=== PATIENT | female | born 1975 | race African-American/Black ===

== ENCOUNTER → 2017-02-04 | Outpatient (CLI) | payer MEDICARE, OTHER ==
--- NOTE | 2017-02-04 15:55 | US ---
EXAMINATION TYPE: US OB <=14 wks transvag DATE OF EXAM: 02/04/2017 COMPARISON: NONE CLINICAL HISTORY: Z33. state incidental. hx of 2 strokes. hx of 3 c-sections EXAM PERFORMED: Transvaginal (TV) and Transabdominal (TA) EXAM MEASUREMENTS: GESTATIONAL AGE / DATING Dates by LMP: (8 weeks/5 days) EDC: 09/11/2017 Dates by Current Scan: ( 9 weeks/0 days) EDC: 09/09/2017 MATERNAL ANATOMY Uterus: 10.1 x 6.3 x 5.6 cm Right Ovary: 2.7 x 1.5 x 1.5 cm Left Ovary: 2.5 x 2.0 x 1.5 cm Post CDS / Adnexa: no free fluid Presence of free fluid: no Presence of corpus luteal cyst: hypoechoic lesion in left ovary = 1.4 x 1.3 x 1.1 cm GESTATION / SURVEY CRL: 2.3 cm (9 weeks/0 days) MSD: seen Yolk Sac (normal less than 6mm): 3.9 mm Heart Rate: 195 bpm Rhythm: Normal IUP: Viable IUP Date of LMP: 12/05/2016, Beta HcG (if available): not available Live IUP measuring 9 weeks 0 days. Heart rate appears high. IMPRESSION: VIABLE UTERINE GESTATION WITH A GESTATIONAL AGE OF 9 WEEKS +/- 5 DAYS. ESTIMATED DATE OF CONFINEMENT BASED ON THIS EXAMINATION IS 09/09/2017
== END | disposition home or self-care (01) ==
LOC: RADUSWWP 14:49
PROVIDERS: ATTEND Family Medicine
DX: O99.89 Other specified diseases and conditions complicating pregnancy, childbirth and the puerperium (principal); Z86.73 Personal history of transient ischemic attack (TIA), and cerebral infarction without residual deficits; Z3A.09 9 weeks gestation of pregnancy
CPT/HCPCS: 76801; 76817

== ENCOUNTER → 2018-06-03 | Outpatient (CLI) | payer MEDICARE, OTHER ==
[2018-06-03 14:48] LABS: Basophils # (A) 0.1 k/uL (0-0.2); Basophils % (A) 1 %; Eosinophils # (A) 0.2 k/uL (0-0.7); Eosinophils % (A) 2 %; HGB 14.3 gm/dL (11.4-16.0); Lymphocytes # (A) 3.6 k/uL (1.0-4.8); Lymphocytes % (A) 27 %; MCH 29.3 pg (25.0-35.0); MCHC 33.2 g/dL (31.0-37.0); MCV 88.2 fL (80.0-100.0); Mean Platelet Volume 6.9; Monocytes # (A) 0.4 k/uL (0-1.0); Monocytes % (A) 3 %; Neutrophils # (A) 8.7 k/uL (1.3-7.7); Neutrophils % (A) 67 %; Platelet Count 265 k/uL (150-450); RBC 4.88 m/uL (3.80-5.40); RDW 13.2 % (11.5-15.5)
== END | disposition home or self-care (01) ==
LOC: LABPAT 13:25
PROVIDERS: ATTEND Surgery
DX: Z01.812 Encounter for preprocedural laboratory examination (principal); K43.2 Incisional hernia without obstruction or gangrene
CPT/HCPCS: 36415; 85025

== ENCOUNTER → 2018-06-08 | Outpatient (CLI) | payer MEDICARE, OTHER | END | disposition home or self-care (01) | LOC: LABPAT 12:57 | PROVIDERS: ATTEND Surgery | DX: Z01.818 Encounter for other preprocedural examination (principal); Z01.812 Encounter for preprocedural laboratory examination; K43.2 Incisional hernia without obstruction or gangrene | CPT/HCPCS: 93005 ==

== ENCOUNTER 2018-06-10 08:33 | Day surgery (SDC) | payer MEDICARE, OTHER ==
[~2018-06-10 08:33] MED LIST: DEXAMETHASONE SOD PHOSPHATE 10 MG/ML 1 ML VIAL IV ONE; HEPARIN SODIUM,PORCINE 5,000 UNIT/ML 1 ML VIAL SQ ONE; LACTATED RINGERS 1,000 ML IV SCH; LIDOCAINE 1% 20 ML VIAL (10MG/ML) FOR IV START INTRADERMA PRN; ONDANSETRON 4 MG/2 ML VIAL IVP ONE; SCOPOLAMINE 1.5MG/72HR PATCH TRANSDERM ONE; ceFAZolin IN SWFI 2 GM/20 ML SYRINGE IVP ONE
[2018-06-10 09:35] LABS: Glucose,Whole Blood 195 mg/dL (75-99)
[2018-06-10 09:35] LABS: Glucose,Whole Blood 150 mg/dL (75-99)
[2018-06-10] MEDS ORDERED: PROPOFOL 10 MG/ML 20 ML VIAL IV ONE (11:05)
[2018-06-10] MEDS ORDERED: NEOSTIGMINE 1 MG/ML 10 ML VIAL ONE (11:05)
[2018-06-10] MEDS ORDERED: HYDROmorphone (PF) 1 MG/ML ONE (11:05)
[2018-06-10] MEDS ORDERED: fentaNYL (PF) 50 MCG/ML 2 ML AMP ONE (11:05)
[2018-06-10] MEDS ORDERED: SUCCINYLCHOLINE CHLORIDE 100 MG/5 ML SYR IV ONE (11:05)
[2018-06-10] MEDS ORDERED: GLYCOPYRROLATE 0.2 MG/ML 2 ML VIAL ONE (11:05)
[2018-06-10] MEDS ORDERED: LABETALOL 5 MG/ML VIAL MDV ONE (11:05)
[2018-06-10] MEDS ORDERED: KETAMINE 10 MG/ML 20 ML VIAL ONE (11:05)
[2018-06-10] MEDS ORDERED: MIDAZOLAM 2 MG/2 ML VIAL ONE (11:05)
[2018-06-10] MEDS ORDERED: ROCURONIUM BROMIDE 10 MG/ML 10 ML VIAL IV ONE (11:05)
[2018-06-10] MEDS ORDERED: LIDOCAINE 1% INJ 10MG/ML (20 ML MDV) ONE (11:05)
[2018-06-10] MEDS ORDERED: LACTATED RINGERS 1,000 ML IV ONE (11:33)
[2018-06-10] MEDS ORDERED: ONDANSETRON 4 MG/2 ML VIAL IVP PRN (13:06)
[2018-06-10] MEDS ORDERED: NALOXONE 0.4 MG/ML 1 ML VIAL IV PRN (13:06)
[2018-06-10] MEDS ORDERED: D5-0.45% NACL WITH KCL 20MEQ/L 1,000 ML IV SCH (13:15)
[2018-06-10 13:35] VITALS: RESP 16
[2018-06-10] MEDS: HYDROmorphone 0.5 MG/0.5 ML SYRINGE IVP PRN ×2 (13:44→14:15)
--- NOTE | 2018-06-10 14:07 | P.OP ---
Date of Procedure: 06/10/18 Procedure(s) Performed: PREOPERATIVE DIAGNOSIS: Incisional hernia POSTOPERATIVE DIAGNOSIS: Same PROCEDURE: Incisional hernia with mesh SURGEON: Megan EBL: Minimal ANESTHESIA: Gen. COMPLICATIONS: None OPERATIVE PROCEDURE: Patient placed on the operating table in the supine position. Preoperative Matuet catheter was placed. Abdomen was prepped and draped in usual sterile fashion. A lower midline incision was made using the scalpel. Dissection through the saphenous tissues took place using electrocautery. A large hernia was identified. The hernia sac was carefully dissected down to the level of the fascia where it was excised. The size of this fascial defect was approximately 6-7 cm in diameter. Unfortunately the patient had significant adhesions circumferentially at the level of the fascia and peritoneum. Extensive lysis of adhesions took place circumferentially around the hernia site. A single small serosal tear was identified in reinforced using 3-0 GI silk Lambert sutures. Once I had adequate space an [address] mesh was placed beneath the fascia and sutured to the fascia using trans-fascial 0 Ethibond sutures. Following that the midline fascia was reapproximated using [id number] 0 Ethibond sutures. A drain was placed anterior to the fascial closure exiting through the left lower quadrant. This was sutured to the skin using a 3-0 silk stitch. The subcutaneous tissues were closed using 3-0 Vicryl sutures. The skin was closed using 4-0 Monocryl sutures. Skin glue and tape was then applied. DISPOSITION: Stable to recovery room
[2018-06-10 14:17] LABS: Glucose,Whole Blood 249 mg/dL (75-99)
[2018-06-10] MEDS ORDERED: INSULIN ASPART 100 UNIT/ML 1 ML 10 ML VIAL SQ ONE (14:18)
[2018-06-10] MEDS: HYDROcodone/APAP 5-325MG 1 EACH TAB PO PRN (15:58)
[2018-06-10] MEDS: HEPARIN SODIUM,PORCINE 5,000 UNIT/ML 1 ML VIAL SQ SCH ×2 (16:00→23:56)
[2018-06-10 17:44] LABS: Glucose,Whole Blood 311 mg/dL (75-99)
[2018-06-10] MEDS ORDERED: INSULIN ASPART 100 UNIT/ML 1 ML 10 ML VIAL SQ SCH (17:45)
[2018-06-10] MEDS: HYDROmorphone 1 MG/ML 1 ML SYRINGE IVP PRN ×2 (17:47→21:35)
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
[2018-06-10] MEDS: 0.9% NACL WITH KCL 20 MEQ/L 1,000 ML IV SCH (19:34)
[2018-06-10] MEDS: FAMOTIDINE 20 MG TAB PO SCH (21:19)
[2018-06-10] MEDS: DOCUSATE 100 MG CAP PO SCH (21:19)
[2018-06-10 21:24] LABS: Glucose,Whole Blood 233 mg/dL (75-99)
[2018-06-10] MEDS: INSULIN ASPART 100 UNIT/ML 1 ML 10 ML VIAL SQ SCH (22:25)
[2018-06-11] MEDS: HYDROmorphone 1 MG/ML 1 ML SYRINGE IVP PRN (01:42)
[2018-06-11] MEDS: 0.9% NACL WITH KCL 20 MEQ/L 1,000 ML IV SCH (03:46)
[2018-06-11 06:40] LABS: Glucose,Whole Blood 140 mg/dL (75-99)
[2018-06-11] MEDS: INSULIN ASPART 100 UNIT/ML 1 ML 10 ML VIAL SQ SCH ×2 (07:26→12:00)
[2018-06-11] MEDS ORDERED: INSULIN ASPART 100 UNIT/ML 1 ML 10 ML VIAL SQ SCH (07:30)
[2018-06-11 07:45] LABS: Basophils % (A) 0 %; Eosinophils # (A) 0.2 k/uL (0-0.7); Eosinophils % (A) 1 %; HCT 37.8 % (34.0-46.0); HGB 12.4 gm/dL (11.4-16.0); Lymphocytes # (A) 2.8 k/uL (1.0-4.8); Lymphocytes % (A) 18 %; MCH 29.2 pg (25.0-35.0); MCHC 32.9 g/dL (31.0-37.0); MCV 88.8 fL (80.0-100.0); Mean Platelet Volume 6.9; Monocytes # (A) 0.4 k/uL (0-1.0); Monocytes % (A) 3 %; Neutrophils # (A) 11.9 k/uL (1.3-7.7); Neutrophils % (A) 77 %; Platelet Count 258 k/uL (150-450); RBC 4.25 m/uL (3.80-5.40); RDW 13.3 % (11.5-15.5); WBC 15.4 k/uL (3.8-10.6)
[2018-06-11 08:04] LABS: ALT 14 U/L (9-52); AST 19 U/L (14-36); Albumin 3.2 g/dL (3.5-5.0); Alkaline Phosphatase 65 U/L (38-126); Anion Gap 7 mmol/L; Blood Urea Nitrogen 7 mg/dL (7-17); Calcium 8.5 mg/dL (8.4-10.2); Carbon Dioxide 28 mmol/L (22-30); Chloride 102 mmol/L (98-107); Glucose 129 mg/dL (74-99); Potassium 4.3 mmol/L (3.5-5.1); Sodium 137 mmol/L (137-145); Total Bilirubin 0.6 mg/dL (0.2-1.3); Total Protein 6.1 g/dL (6.3-8.2)
[2018-06-11] MEDS: FAMOTIDINE 20 MG TAB PO SCH (08:38)
[2018-06-11] MEDS: DOCUSATE 100 MG CAP PO SCH (08:38)
[2018-06-11] MEDS: HYDROcodone/APAP 5-325MG 1 EACH TAB PO PRN ×2 (08:38→12:58)
[2018-06-11] MEDS: HEPARIN SODIUM,PORCINE 5,000 UNIT/ML 1 ML VIAL SQ SCH (08:41)
[2018-06-11] MEDS ORDERED: LABETALOL 100 MG TAB PO SCH (09:00)
[2018-06-11] MEDS ORDERED: HYDROCHLOROTHIAZIDE 25 MG TAB PO SCH (09:00)
--- NOTE | 2018-06-11 09:30 | P.PN ---
Progress Note - Text Progress Note Date: 06/11/18 The patient is doing well. She has minimal complaints of pain. On exam her vital signs are stable. Her abdomen soft. Patient will be discharged home today. She'll follow-up Dr. Guzman next week.
[2018-06-11 11:43] LABS: Glucose,Whole Blood 149 mg/dL (75-99)
[2018-06-11 11:54] VITALS: BP 99/61; PULSE 70; TEMP 98.2
[2018-06-11 12:27] LABS: Hemoglobin A1C 7.6 % (4.0-6.0)
[2018-06-11] MEDS ORDERED: metFORMIN 500 MG TAB PO SCH (17:30)
--- NOTE | 2018-06-12 07:57 | PN ---
PROGRESS NOTE June 11, 2018. PRESENTING COMPLAINT: Abdominal surgery. INTERVAL HISTORY: Status post incisional hernia surgery. Doing better. Diet was advanced. Pain is better controlled. No nausea, vomiting. Has been out of bed. REVIEW OF SYSTEMS: Done for constitutional, cardiovascular, GI, pulmonary and relevant findings as above. CURRENT MEDICATIONS: Reviewed. PHYSICAL EXAMINATION: VITAL SIGNS: Temperature 98.2, pulse 72, respiratory rate 16, blood pressure 99/61, pulse ox 95% on room air. GENERAL APPEARANCE: Sitting up, more comfortable. EYES: Pupils are equal. Conjunctivae normal. HEENT: External appearance of nose and ears normal. Oral cavity normal. NECK: JVD not raised. Mass not palpable. RESPIRATORY: Effort, lungs slightly decreased breath sounds. CARDIOVASCULAR: 1st and 2nd sounds, no edema. ABDOMEN: Soft. Some tenderness present. Bowel sounds present. PSYCHIATRY: Alert and oriented x3. Mood and affect normal. INVESTIGATIONS: White count 15.4, hemoglobin 12.4, potassium 4.3. ASSESSMENT: 1. Status post incisional hernia repair. 2. Obesity, BMI 30. 3. Diabetes mellitus type 2 on oral hypoglycemics. 4. Essential hypertension. 5. Chronic nicotine dependence, patient is cigar smoker. PLAN: Patient is counseled against smoking. Encouraged to ambulate and cut back on pain medications if possible. Also diet was discussed. Thank you Dr. Guzman. KADIE / WILLIAM: [id number] /
== END 2018-06-11 14:14 | disposition home or self-care (01) ==
LOC: OR 08:33 → 6PED 13:19 → OR 06-11 14:14
PROVIDERS: ATTEND Surgery
DX: K43.2 Incisional hernia without obstruction or gangrene (principal); K66.0 Peritoneal adhesions (postprocedural) (postinfection); E66.9 Obesity, unspecified; Z68.30 Body mass index [BMI] 30.0-30.9, adult; E11.9 Type 2 diabetes mellitus without complications; I10 Essential (primary) hypertension; E78.00 Pure hypercholesterolemia, unspecified; E78.5 Hyperlipidemia, unspecified; F41.9 Anxiety disorder, unspecified; F32.9 Major depressive disorder, single episode, unspecified; I83.90 Asymptomatic varicose veins of unspecified lower extremity; K21.9 Gastro-esophageal reflux disease without esophagitis; M54.12 Radiculopathy, cervical region; R41.3 Other amnesia; R32 Unspecified urinary incontinence; M19.90 Unspecified osteoarthritis, unspecified site; I69.351 Hemiplegia and hemiparesis following cerebral infarction affecting right dominant side; M54.9 Dorsalgia, unspecified; G89.29 Other chronic pain; G43.909 Migraine, unspecified, not intractable, without status migrainosus; Z79.84 Long term (current) use of oral hypoglycemic drugs; Z79.1 Long term (current) use of non-steroidal anti-inflammatories (NSAID); Z79.82 Long term (current) use of aspirin; Z79.891 Long term (current) use of opiate analgesic; Z79.899 Other long term (current) drug therapy; Z90.49 Acquired absence of other specified parts of digestive tract; Z87.891 Personal history of nicotine dependence
CPT/HCPCS: 80053; 84132; 85025; 88302; 83036; 49560; 49568; J2250; J1644 ×2; J1100; J2710; J2405; J2001; J3010; J1170 ×3; J0330; J2704; J0690; 81025; 86850; 86900; 86901

== ENCOUNTER 2018-10-05 12:02 | Emergency (ER) | payer MEDICARE, OTHER ==
[2018-10-05] MEDS ORDERED: SODIUM CHLORIDE 0.9% 1,000 ML IV STA ×2 (12:41)
[2018-10-05] MEDS ORDERED: ASPIRIN 81 MG PO STA (12:41)
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
[2018-10-05 13:09] LABS: Basophils # (A) 0.1 k/uL (0-0.2); Basophils % (A) 1 %; Eosinophils # (A) 0.2 k/uL (0-0.7); Eosinophils % (A) 1 %; HCT 43.7 % (34.0-46.0); HGB 14.4 gm/dL (11.4-16.0); Lymphocytes # (A) 3.2 k/uL (1.0-4.8); Lymphocytes % (A) 21 %; MCH 28.7 pg (25.0-35.0); Monocytes # (A) 0.5 k/uL (0-1.0); Monocytes % (A) 4 %; Neutrophils # (A) 10.6 k/uL (1.3-7.7); Neutrophils % (A) 72 %; Platelet Count 354 k/uL (150-450); RBC 5.02 m/uL (3.80-5.40); RDW 14.1 % (11.5-15.5); WBC 14.7 k/uL (3.8-10.6)
[2018-10-05 13:16] LABS: Partial Thromboplastin Time 23.2 sec (22.0-30.0); Prothrombin Time 10.5 sec (9.0-12.0)
[2018-10-05 13:28] LABS: ALT 25 U/L (9-52); AST 15 U/L (14-36); Albumin 4.2 g/dL (3.5-5.0); Alkaline Phosphatase 113 U/L (38-126); Amylase 54 U/L (30-110); Anion Gap 8 mmol/L; Blood Urea Nitrogen 6 mg/dL (7-17); Carbon Dioxide 27 mmol/L (22-30); Chloride 103 mmol/L (98-107); Glucose 112 mg/dL (74-99); Lipase 54 U/L (23-300); Magnesium 1.5 mg/dL (1.6-2.3); Potassium 3.9 mmol/L (3.5-5.1); Sodium 138 mmol/L (137-145); Total Bilirubin 0.6 mg/dL (0.2-1.3); Total Protein 7.3 g/dL (6.3-8.2)
[2018-10-05 13:29] LABS: Creatine Kinase 85 U/L (30-135)
[2018-10-05 13:42] LABS: Creatine Kinase MB 0.4 ng/mL (0.0-2.4); Troponin I <0.012 ng/mL (0.000-0.034)
--- NOTE | 2018-10-05 14:12 | XR ---
EXAMINATION TYPE: XR chest 2V DATE OF EXAM: 10/05/2018 COMPARISON: NONE TECHNIQUE: PA and lateral views submitted. HISTORY: Chest pain FINDINGS: The lungs are clear and there is no pneumothorax, pleural effusion, or focal pneumonia. IMPRESSION: 1. No acute process.
[2018-10-05] MEDS ORDERED: LABETALOL SYRINGE 5 MG/ML IVP STA (14:18)
[2018-10-05 14:58] VITALS: RESP 20; TEMP 98.1
[2018-10-05 15:00] VITALS: BP 160/98; PULSE 77
== END 2018-10-05 14:59 | disposition home or self-care (01) ==
LOC: EC 12:02
DX: R07.89 Other chest pain (principal); L02.412 Cutaneous abscess of left axilla; Z71.6 Tobacco abuse counseling; E11.9 Type 2 diabetes mellitus without complications; I10 Essential (primary) hypertension; F17.200 Nicotine dependence, unspecified, uncomplicated; Z79.82 Long term (current) use of aspirin; Z79.84 Long term (current) use of oral hypoglycemic drugs; Z79.899 Other long term (current) drug therapy; Z88.8 Allergy status to other drugs, medicaments and biological substances; Z86.73 Personal history of transient ischemic attack (TIA), and cerebral infarction without residual deficits
CPT/HCPCS: 36415; 71046; 80053; 82150; 82550; 82553; 83690; 83735; 84484; 85025; 85610; 85730; 96361; 96374; 99285

== ENCOUNTER → 2022-09-11 | Outpatient (CLI) | payer MEDICARE, OTHER ==
--- NOTE | 2022-09-11 13:38 | FL ---
EXAMINATION TYPE: FL barium swallow DATE OF EXAM: 09/11/2022 COMPARISON: None HISTORY: Food getting stuck TECHNIQUE: A single contrast UGI study is performed. FINDINGS: Esophagus dialysis from caliber and is normal contour of the gastroesophageal junction. Gas troesophageal junction opens to normal caliber. Secondary contractions observed during the study. There is hesitancy of contrast emptying from the di stal esophagus. Reflux is present. IMPRESSIONS: 1. Mild presbyesophagus. Some mild gastroesophageal reflux. 2. No focal persistent stenosis.
== END | disposition home or self-care (01) ==
LOC: RADUSWWP 09:18
PROVIDERS: ATTEND Family Medicine
DX: K21.9 Gastro-esophageal reflux disease without esophagitis (principal); K22.89 Other specified disease of esophagus
CPT/HCPCS: 74220

== ENCOUNTER 2022-12-30 19:27 | Emergency (ER) | payer MEDICARE, OTHER ==
[2022-12-30 20:11] VITALS: TEMP 98.4
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
[2022-12-30 20:37] LABS: Basophils # (A) 0.1 k/uL (0-0.2); Basophils % (A) 1 %; Eosinophils # (A) 0.2 k/uL (0-0.7); Eosinophils % (A) 2 %; HCT 40.2 % (34.0-46.0); HGB 13.3 gm/dL (11.4-16.0); Lymphocytes # (A) 3.7 k/uL (1.0-4.8); Lymphocytes % (A) 28 %; MCH 27.9 pg (25.0-35.0); MCHC 33.2 g/dL (31.0-37.0); Mean Platelet Volume 7.7; Monocytes # (A) 0.4 k/uL (0-1.0); Monocytes % (A) 3 %; Neutrophils # (A) 8.6 k/uL (1.3-7.7); Neutrophils % (A) 66 %; Platelet Count 278 k/uL (150-450); RBC 4.79 m/uL (3.80-5.40); RDW 14.3 % (11.5-15.5); WBC 13.1 k/uL (3.8-10.6)
[2022-12-30 20:48] LABS: ALT 13 U/L (4-34); AST 20 U/L (14-36); African American GFR (CKD) >90 (>60 ml/min/1.73 sqM); Albumin 3.6 g/dL (3.5-5.0); Alkaline Phosphatase 104 U/L (38-126); Anion Gap 7 mmol/L; Blood Urea Nitrogen 5 mg/dL (7-17); Calcium 9.3 mg/dL (8.4-10.2); Carbon Dioxide 25 mmol/L (22-30); Chloride 102 mmol/L (98-107); Glucose 148 mg/dL (74-99); Non-African American GFR(CKD) >90 (>60 ml/min/1.73 sqM); Potassium 3.8 mmol/L (3.5-5.1); Sodium 134 mmol/L (137-145); Total Bilirubin 0.3 mg/dL (0.2-1.3); Total Protein 6.6 g/dL (6.3-8.2)
[2022-12-30 21:11] LABS: Appearance,Urine Clear (Clear); Bilirubin,Urine Negative (Negative); Blood,Urine Negative (Negative); Color,Urine Light Yellow; Glucose,Urine (UA) Negative (Negative); Ketones,Urine Negative (Negative); Leukocyte Esterase,Urine Negative (Negative); Nitrite,Urine Negative (Negative); PH, Urine 5.5 (5.0-8.0); Protein,Urine Negative (Negative); Specific Gravity,Urine 1.007 (1.001-1.035); Urobilinogen,Urine <2.0 mg/dL (<2.0)
[2022-12-30] MEDS ORDERED: LABETALOL 5 MG/ML VIAL MDV IVP STA ×2 (21:33→22:35)
--- NOTE | 2022-12-30 21:48 | XR ---
EXAMINATION TYPE: XR chest 2V DATE OF EXAM: 12/30/2022 COMPARISON: Chest x-ray October 05, 2018 HISTORY: Hypertension. TECHNIQUE: Frontal and lateral views of the chest are obtained. FINDINGS: There is no suspicious focal air space opacity, pleural effusion, or pneumothorax seen. T he cardiac silhouette size remains within normal limits. The osseous structures are intact. Cholecy stectomy clips are present. IMPRESSION: No acute cardiopulmonary process.
[2022-12-30] MEDS ORDERED: LABETALOL 200 MG TAB PO STA (23:42)
[2022-12-31 00:16] VITALS: PULSE 63; RESP 18
[2022-12-31 02:01] VITALS: BP 181/95
== END 2022-12-31 02:03 | disposition home or self-care (01) ==
LOC: EC 19:27
DX: I16.0 Hypertensive urgency (principal); E11.9 Type 2 diabetes mellitus without complications; F32.A Depression, unspecified; F17.200 Nicotine dependence, unspecified, uncomplicated; Z86.73 Personal history of transient ischemic attack (TIA), and cerebral infarction without residual deficits; Z79.82 Long term (current) use of aspirin; Z79.84 Long term (current) use of oral hypoglycemic drugs; Z79.899 Other long term (current) drug therapy; Z88.6 Allergy status to analgesic agent
CPT/HCPCS: 36415; 71046; 80053; 81003; 84484; 85025; 93005; 96374; 96376; 99283

== ENCOUNTER 2023-05-31 17:50 | Emergency (ER) | payer MEDICARE, OTHER ==
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
[2023-05-31 20:43] LABS: Basophils % (A) 0 %; Eosinophils # (A) 0.3 k/uL (0-0.7); Eosinophils % (A) 2 %; HCT 41.1 % (34.0-46.0); HGB 13.5 gm/dL (11.4-16.0); Lymphocytes % (A) 28 %; MCH 28.1 pg (25.0-35.0); MCHC 32.9 g/dL (31.0-37.0); MCV 85.6 fL (80.0-100.0); Monocytes # (A) 0.5 k/uL (0-1.0); Monocytes % (A) 3 %; Neutrophils # (A) 9.2 k/uL (1.3-7.7); Neutrophils % (A) 65 %; Platelet Count 276 k/uL (150-450); RDW 14.4 % (11.5-15.5); WBC 14.1 k/uL (3.8-10.6)
[2023-05-31 20:54] LABS: ALT 14 U/L (4-34); AST 20 U/L (14-36); African American GFR (CKD) >90 (>60 ml/min/1.73 sqM); Albumin 3.9 g/dL (3.5-5.0); Alkaline Phosphatase 106 U/L (38-126); Anion Gap 11 mmol/L; Blood Urea Nitrogen 12 mg/dL (7-17); Calcium 9.4 mg/dL (8.4-10.2); Carbon Dioxide 21 mmol/L (22-30); Chloride 105 mmol/L (98-107); Glucose 137 mg/dL (74-99); Non-African American GFR(CKD) >90 (>60 ml/min/1.73 sqM); Potassium 4.1 mmol/L (3.5-5.1); Sodium 137 mmol/L (137-145); Total Bilirubin 0.3 mg/dL (0.2-1.3)
[2023-05-31 21:05] LABS: Appearance,Urine Clear (Clear); Bilirubin,Urine Negative (Negative); Blood,Urine Negative (Negative); Color,Urine Colorless; Glucose,Urine (UA) Negative (Negative); Ketones,Urine Negative (Negative); Leukocyte Esterase,Urine Negative (Negative); Nitrite,Urine Negative (Negative); PH, Urine 5.5 (5.0-8.0); Protein,Urine Negative (Negative); Specific Gravity,Urine 1.004 (1.001-1.035); Urobilinogen,Urine <2.0 mg/dL (<2.0)
[2023-05-31] MEDS ORDERED: LABETALOL 5 MG/ML VIAL MDV IVP STA (23:15)
[2023-06-01] MEDS ORDERED: hydrALAZINE HCL 20 MG/ML 1 ML VIAL IVP STA
--- NOTE | 2023-06-01 05:56 | CT ---
EXAM: CT Abdomen and Pelvis With Intravenous Contrast CLINICAL HISTORY: ITS.REASON CT Reason: RLQ abdominal pain, appendicitis suspected TECHNIQUE: Axial computed tomography images of the abdomen and pelvis with intravenous contrast. CTDI is 32 mGy and DLP is 1347.8 mGy-cm. This CT exam was performed using one or more of the following dose reduction techniques: automated exposure control, adjustment of the mA and/or kV according to patient size, and/or use of iterative reconstruction technique. COMPARISON: No relevant prior studies available. FINDINGS: Lung bases: Unremarkable. No mass. No consolidation. ABDOMEN: Liver: Unremarkable. No mass. Gallbladder and bile ducts: Unremarkable. No calcified stones. No ductal dilation. Pancreas: Unremarkable. No mass. No ductal dilation. Spleen: Unremarkable. No splenomegaly. Adrenals: Unremarkable. No mass. Kidneys and ureters: Simple left renal cyst. No follow-up of this simple cyst is necessary. No hydronephrosis. Stomach and bowel: No evidence of bowel obstruction. Colonic diverticulosis. No evidence of diverticulitis. PELVIS: Appendix: Normal appendix. Bladder: Unremarkable. No mass. Reproductive: Simple right ovarian cyst or follicle measuring 2.5 cm in maximum diameter. No follow-up is necessary. ABDOMEN and PELVIS: Intraperitoneal space: Unremarkable. No free air. No significant fluid collection. Bones/joints: Degenerative changes in the spine. Abnormal enlargement of the left iliac bone with sclerosis near the SI joint. This appears to have a mild masslike appearance measuring approximately 2.6 x 3.6 x 3.6 cm. Poorly defined borders and with infiltrative appearance. Mild remodeling noted of the adjacent SI joint. The etiology of this is indeterminate. This relate to an aggressive mass lesion. Consider further workup and comparison imaging. Please note that there were lucencies at the cortex of the left iliac bone. Prior biopsy tract or not excluded. No acute fracture. No dislocation. Soft tissues: Diastases recti. Vasculature: Atherosclerotic disease. No abdominal aortic aneurysm. Lymph nodes: Unremarkable. No enlarged lymph nodes. IMPRESSION: 1. Normal appendix. 2. Abnormal enlargement of the left iliac bone with sclerosis near the SI joint. This appears to have a mild masslike appearance measuring approximately 2.6 x 3.6 x 3.6 cm. Poorly defined borders and with infiltrative appearance. Mild remodeling noted of the adjacent SI joint. The etiology of this is indeterminate. This relate to an aggressive mass lesion. Consider further workup and comparison imaging. Please note that there were lucencies at the cortex of the left iliac bone. Prior biopsy tract or not excluded. 3. No other acute findings. 4. Incidental findings as described. <MYCVCSECTION> Communications: 06/01/23 06:00 Call Doctor Regarding Above results, called Dr. Blankenship on 06/01 06:00 (-04:00)
[2023-06-01 07:43] VITALS: BP 180/100; PULSE 80; RESP 16; TEMP 97.8
== END 2023-06-01 07:28 | disposition home or self-care (01) ==
LOC: EC 17:50
DX: M85.9 Disorder of bone density and structure, unspecified (principal); R10.31 Right lower quadrant pain; R11.2 Nausea with vomiting, unspecified; I10 Essential (primary) hypertension; E11.9 Type 2 diabetes mellitus without complications; F32.A Depression, unspecified; F17.200 Nicotine dependence, unspecified, uncomplicated; Z79.84 Long term (current) use of oral hypoglycemic drugs; Z79.82 Long term (current) use of aspirin; Z79.899 Other long term (current) drug therapy; Z88.8 Allergy status to other drugs, medicaments and biological substances; Z90.49 Acquired absence of other specified parts of digestive tract; Z20.822 Contact with and (suspected) exposure to COVID-19
CPT/HCPCS: 99284; 96374; 96375; 36415; 80053; 83605; 85025; 81003; 81025; 87636; 74177; J0360; Q9967; J1920